=== PATIENT | female | born 2000 | race Caucasian/White ===

== ENCOUNTER 2019-11-12 | Emergency (ER) | payer BC ==
[2019-11-12 00:15] VITALS: BP 135/94; PULSE 88
[2019-11-12] MEDS ORDERED: Ondansetron 4 MG Tab.DIS PO ONE (00:33)
[2019-11-12] MEDS ORDERED: Ketorolac 60 MG/2 ML SDV IM ONE (00:33)
--- NOTE | 2019-11-12 00:37 | EDM.PDOC ---
ED HPI GENERAL MEDICAL PROBLEM - General Chief Complaint: Head Injury Stated Complaint: HIT HEAD Time Seen by Provider: 11/12/19 00:29 Source of Information: Reports: Patient, RN Notes Reviewed History Limitations: Reports: No Limitations - History of Present Illness INITIAL COMMENTS - FREE TEXT/NARRATIVE: 18-year-old female presents emergency department a complaint of headache, nausea difficulty with concentration. Reports that she had a head injury yesterday fell out of bed hit her head on the nightstand also tripped over her laundry basket hit her head on the wall to head injuries within a 24-hour period. She does have a history of concussion syndrome in the past. 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 History: Reports: Other (See Below) Other [employer]ACTICE PEDIATRICIAN History: ovarian cyst Musculoskeletal History: Reports: Fracture, Other (See Below) Other Musculoskeletal History: right knee fx Neurological History: Reports: Concussion Other Neuro History: Pt has had four other concussions previously Psychiatric History: Reports: Anxiety, Depression Dermatologic History: Reports: Other (See Below) Other Dermatologic History: back of left leg possible cyst with pending biopsy - Past Surgical History Head Surgeries/Procedures: Reports: None HEENT Surgical History: Reports: Oral Surgery Social & Family History - Tobacco Use Smoking Status *Q: Current Every Day Smoker Years of Tobacco use: 4 Packs/Tins Daily: 0.5 Second Hand Smoke Exposure: Yes - Caffeine Use Caffeine Use: Reports: Coffee - Recreational Drug Use Recreational Drug Use: No ED ROS GENERAL - Review of Systems Review Of Systems: See Below Constitutional: Reports: No Symptoms HEENT: Reports: No Symptoms Respiratory: Reports: No Symptoms Cardiovascular: Reports: No Symptoms GI/Abdominal: Reports: Nausea : Reports: No Symptoms Musculoskeletal: Reports: No Symptoms Neurological: Reports: Headache ED EXAM, HEAD INJURY - Physical Exam Exam: See Below Exam Limited By: No Limitations General Appearance: Alert, WD/WN, No Apparent Distress Head: Atraumatic, Normocephalic Eyes: Bilateral Eye: EOMI, Normal Inspection, PERRL Respiratory: No Respiratory Distress Neurologic: No Motor/Sensory Deficits, Alert, Normal Mood/Affect, Oriented x 3 Course - Vital Signs Last Recorded V/S: Last Vital Signs Temp 99.3 F 11/12/19 00:15 Pulse 88 11/12/19 00:15 Resp 15 11/12/19 00:15 BP 135/94 H 11/12/19 00:15 Pulse Ox 100 11/12/19 00:15 - Orders/Labs/Meds Meds: Medications Discontinued Medications Generic Name Dose Route Start Last Admin Trade Name Freq PRN Reason Stop Dose Admin Ketorolac Tromethamine 60 mg 11/12/19 00:33 11/12/19 00:49 Toradol IM 11/12/19 00:34 60 mg ONETIME ONE Administration Ondansetron HCl 4 mg 11/12/19 00:33 11/12/19 00:50 Zofran Odt PO 11/12/19 00:34 4 mg ONETIME ONE Administration Departure - Departure Time of Disposition: 00:57 Disposition: Home, Self-Care 01 Condition: Fair Clinical Impression: Concussion with no loss of consciousness - Discharge Information Instructions: Concussion, Adult, [id number] Referrals: PCP,None [Primary Care Provider] - Forms: ED Department Discharge Additional Instructions: Continue to use ibuprofen or Tylenol as needed for headache control, please followup with your primary care provider in 3-5 days if not better, please call return to the emergency department with worsening of symptoms. Sepsis Event Note - Evaluation Sepsis Screening Result: No Definite Risk - Focused Exam Vital Signs: Vital Signs Temp Pulse Resp BP Pulse Ox 11/12/19 00:15 99.3 F 88 15 135/94 H 100 11/12/19 00:14 99.3 F 88 15 135/94 H 100 Date Exam was Performed: 11/12/19 Time Exam was Performed: 00:56 - Assessment/Plan Plan: Assessment Acuity = acute Site and laterality = concussion syndrome Etiology = head injury Manifestations = nausea, headache Location of injury = Home Lab values = none Plan Good improvement with Toradol and Zofran, follow-up with primary care as needed This note was dictated using [employer] recognition software please call with any questions on syntax or grammar.
== END 2019-11-12 01:14 | disposition home or self-care (01) ==
LOC: JP.ED
DX: S06.0X0A Concussion without loss of consciousness, initial encounter (principal); F32.9 Major depressive disorder, single episode, unspecified; F41.9 Anxiety disorder, unspecified; F17.210 Nicotine dependence, cigarettes, uncomplicated; Z79.899 Other long term (current) drug therapy; W06.XXXA Fall from bed, initial encounter
CPT/HCPCS: 96372; 99283; A9270; J1885

== ENCOUNTER 2020-05-18 16:40 | Emergency (ER) | payer BC ==
[2020-05-18 17:04] VITALS: BP 127/75; PULSE 123
--- NOTE | 2020-05-18 17:15 | EDM.PDOC ---
ED HPI GENERAL MEDICAL PROBLEM - General Chief Complaint: Back Pain or Injury Stated Complaint: BACK PAIN Time Seen by Provider: 05/18/20 17:09 Source of Information: Reports: Patient, Family, RN Notes Reviewed History Limitations: Reports: No Limitations - History of Present Illness INITIAL COMMENTS - FREE TEXT/NARRATIVE: 19-year-old female presents emergency department a complaint of low back pain, she states she awoke this morning severe back pain she denies any trauma no particular lifting injury no difficulty with urination no difficulty with bowel movements Lower Back Pain Score (Numeric/FACES): 8 - Related Data Allergies Allergy/AdvReac Type Severity Reaction Status Date / Time No Known Allergies Allergy Verified 11/12/19 00:11 Home Meds: Home Meds NK [No Known Home Meds] 05/18/20 [History] Past Medical History HEENT History: Reports: Impaired Vision, Other (See Below) Other HEENT History: glasses [employer]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: Other (See Below) Other HOGSHEAD FILLER History: ovarian cyst Musculoskeletal History: Reports: Fracture, Other (See Below) Other Musculoskeletal History: right knee fx Neurological History: Reports: Concussion Other Neuro History: Pt has had four other concussions previously Psychiatric History: Reports: Anxiety, Depression Dermatologic History: Reports: Other (See Below) Other Dermatologic History: back of left leg possible cyst with pending biopsy - Past Surgical History Head Surgeries/Procedures: Reports: None HEENT Surgical History: Reports: Oral Surgery Social & Family History - Caffeine Use Caffeine Use: Reports: Coffee - Recreational Drug Use Recreational Drug Use: No ED ROS GENERAL - Review of Systems Review Of Systems: See Below Constitutional: Reports: No Symptoms Respiratory: Reports: No Symptoms Cardiovascular: Reports: No Symptoms GI/Abdominal: Reports: No Symptoms Musculoskeletal: Reports: Back Pain Neurological: Reports: No Symptoms ED EXAM,LOWER BACK PAIN/INJURY - Physical Exam Exam: See Below Exam Limited By: No Limitations General Appearance: Alert, Mild Distress Respiratory/Chest: No Respiratory Distress Back Exam: Normal Inspection, Decreased Range of Motion, Muscle Spasm, Paraspinal Tenderness. No: CVA Tenderness (R), CVA Tenderness (L), Vertebral Tenderness Neurological: No: Straight Leg Raise (L) Course - Vital Signs Last Recorded V/S: Last Vital Signs Temp 96.8 F L 05/18/20 17:04 Pulse 123 H 05/18/20 17:04 Resp 18 05/18/20 17:04 BP 127/75 05/18/20 17:04 Pulse Ox 99 05/18/20 17:04 - Orders/Labs/Meds Meds: Medications Discontinued Medications Generic Name Dose Route Start Last Admin Trade Name Lasha PRN Reason Stop Dose Admin Cyclobenzaprine HCl 10 mg 05/18/20 17:21 05/18/20 17:27 Flexeril PO 05/18/20 17:22 10 mg ONETIME ONE Administration Ketorolac Tromethamine 60 mg 05/18/20 17:21 05/18/20 17:27 Toradol IM 05/18/20 17:22 60 mg ONETIME ONE Administration Departure - Departure Time of Disposition: 17:57 Disposition: Home, Self-Care 01 Condition: Fair Clinical Impression: Low back pain Qualifiers: Chronicity: acute Back pain laterality: left Sciatica presence: without sciatica Qualified Code(s): M54.5 - Low back pain - Discharge Information Instructions: Acute Back Pain, Adult, Muscle Strain, [id number], Back Exercises, [id number] Referrals: Mame Mackey CNM [Primary Care Provider] - Forms: ED Department Discharge Additional Instructions: Try ibuprofen for baseline pain control use hydrocodone for breakthrough pain please followup with your primary care provider in 3-5 days if not better, please call return to the emergency department with worsening of symptoms. Sepsis Event Note (ED) - Evaluation Sepsis Screening Result: No Definite Risk - Focused Exam Vital Signs: Vital Signs Temp Pulse Resp BP Pulse Ox 05/18/20 17:04 96.8 F L 123 H 18 127/75 99 05/18/20 17:03 96.8 F L 123 H 18 127/75 99 - Assessment/Plan Plan: Assessment Acuity = acute Site and laterality = low back pain Etiology = unknown Manifestations = none Location of injury = Home Lab values = none Plan Had some improvement with Toradol and Flexeril prescription written for Flexeril 10 mg 1 tab p.o. 3 times daily as needed total #15 and hydrocodone 5/325 1 tab p.o. 3 times daily as needed total #10 This note was dictated using [employer] voice recognition software please call with any questions on syntax or grammar.
[2020-05-18] MEDS ORDERED: Ketorolac 60 MG/2 ML SDV IM ONE (17:21)
[2020-05-18] MEDS ORDERED: Cyclobenzaprine 10 MG Tab PO ONE (17:21)
== END 2020-05-18 18:06 | disposition home or self-care (01) ==
LOC: JP.ED 16:40
DX: M62.830 Muscle spasm of back (principal)
CPT/HCPCS: 96372; 99283; A9270; J1885

== ENCOUNTER 2024-05-19 13:45 | Emergency (ER) | payer OTHER ==
[2024-05-19 16:16] LABS: BASOPHILS ABSOLUTE AUTO 0.03 K/uL (0.00-0.10); BASOPHILS PERCENT AUTO 0.4 % (0.1-1.3); EOSINOPHILS ABSOLUTE AUTO 0.16 K/uL (0.00-0.40); HEMATOCRIT 43.4 % (34.3-46.0); IMMATURE GRAN ABSOLUTE AUTO 0.03 K/uL (0.00-0.23); IMMATURE GRAN PERCENT AUTO 0.4 % (0.0-0.7); LYMPHOCYTES ABSOLUTE AUTO 2.43 K/uL (0.8-3.3); LYMPHOCYTES PERCENT AUTO 30.3 % (11.4-47.7); MEAN CORPUSCULAR HEMOGLOBIN 32.2 pg (31.6-35.5); MEAN CORPUSCULAR HGB CONC 34.6 g/dL (31.6-35.5); MEAN CORPUSCULAR VOLUME 93.1 fL (81.4-99.0); MONOCYTES ABSOLUTE AUTO 0.63 K/uL (0.20-0.90); MONOCYTES PERCENT AUTO 7.8 % (3.3-12.6); NEUTROPHILS ABSOLUTE AUTO 4.75 K/uL (1.0-7.6); NEUTROPHILS PERCENT AUTO 59.1 % (40.0-78.1); PLATELET COUNT,PLT 301 K/uL (130-375); RED BLOOD CELL COUNT 4.66 M/uL (3.77-5.24)
[2024-05-19] MEDS: Ondansetron 4 MG/2 ML SDV IVPUSH ONE (16:16)
[2024-05-19] MEDS: HYDROmorphone 1 MG/ML Syringe IVPUSH ONE (16:17)
[2024-05-19] MEDS: Sodium Chloride 0.9% 10 ML Syringe FLUSH PRN (16:18)
[2024-05-19 16:30] LABS: APPEARANCE,URINE SLIGHTLY CLOUDY (CLEAR); BILIRUBIN,URINE NEGATIVE (NEGATIVE); COLOR,URINE YELLOW (YELLOW); GLUCOSE,URINE NEGATIVE (NEGATIVE); KETONES,URINE NEGATIVE (NEGATIVE); LEUKOCYTE ESTERASE,URINE NEGATIVE (NEGATIVE); NITRITE,URINE NEGATIVE (NEGATIVE); OCCULT BLOOD,URINE NEGATIVE (NEGATIVE); PH,URINE 7.5 (5.0-8.0); PROTEIN,URINE NEGATIVE (NEGATIVE); UROBILINOGEN,URINE 0.2 EU/dL (0.2-1.0)
[2024-05-19 16:36] LABS: AMORPHOUS SEDIMENT,URINE NOT SEEN; BACTERIA,URINE FEW; EPITHELIAL CELLS,URINE FEW; MUCUS,URINE NOT SEEN; RBC,URINE 0-5 (0-5); WBC,URINE 0-5 (0-5)
[2024-05-19 16:37] LABS: ALANINE AMINOTRANSFERASE,ALT 38 U/L (12-78); ALBUMIN 3.9 g/dL (3.4-5.0); ALKALINE PHOSPHATASE 66 U/L (46-116); ANION GAP 7.7 mmol/L (5.0-14.0); ASPARTATE AMNIOTRANSFERASE,AST 25 U/L (15-37); BILIRUBIN TOTAL 0.5 mg/dL (0.2-1.0); BLOOD UREA NITROGEN,BUN 8 mg/dL (7-18); C-REACTIVE PROTEIN 1.08 mg/dL (<0.50); CALCIUM 9.7 mg/dL (8.5-10.1); CARBON DIOXIDE,CO2 28 mmol/L (21-32); CHLORIDE,CL 104 mmol/L (100-108); CREATININE 0.9 mg/dL (0.6-1.0); EST CRCL DRUG DOSING (CG) 99.86 mL/min; ESTIMATED GFR 91 mL/min (>60); GLUCOSE RANDOM 90 mg/dL (74-106); POTASSIUM,K 4.4 mmol/L (3.6-5.2); PROTEIN TOTAL,TP 7.7 g/dL (6.4-8.2); SODIUM,NA 140 mmol/L (140-148)
[2024-05-19] MEDS: Sodium Chloride 0.9% 80 ML IV ONE (17:16)
[2024-05-19] MEDS: Sodium Chloride 0.9% 10 ML Syringe FLUSH ONE (17:16)
[2024-05-19] MEDS: Iopamidol 612 MG/ML 100 ML Bottle IV ONE (17:16)
[2024-05-19 18:53] VITALS: BP 115/73; PULSE 58
== END 2024-05-19 19:06 | disposition home or self-care (01) ==
LOC: JP.ED 13:45
DX: N83.202 Unspecified ovarian cyst, left side (principal); F17.210 Nicotine dependence, cigarettes, uncomplicated; Z86.16 Personal history of COVID-19
CPT/HCPCS: 36415; 74177; 80053; 81001; 81025; 83605; 83690; 84145; 85025; 86140; 87086; 96374; 96375; 99284; J1171; J2405; J3490; J7030; Q9967

== ENCOUNTER 2025-01-25 08:49 | Day surgery (SDC) | payer OTHER ==
[~2025-01-25 08:49] MED LIST: Midazolam 1 MG/ML 2 ML SDV ONE; Propofol 200 MG/20 ML SDV ONE; fentaNYL 100 MCG/2 ML SDV ONE
[2025-01-25] MEDS ORDERED: Sodium Tetradecyl Sulfate 1% 20 MG/2 ML SDV ONE (09:48)
[2025-01-25] MEDS: Lactated Ringers 1,000 ML IV SCH (10:02)
[2025-01-25] MEDS ORDERED: Propofol 200 MG/20 ML SDV ONE ×2 (10:49→11:05)
[2025-01-25] MEDS: Lidocaine 1% with EPINEPHrine 1:100,000 50 ML MDV ONE (11:05)
[2025-01-25] MEDS ORDERED: fentaNYL 100 MCG/2 ML SDV ONE (11:08)
[2025-01-25] MEDS: Lidocaine 1% w/EPINEPHrine 50 ML, Sodium Bicarbonate 5 MEQ in Sodium Chloride 0.9% 950 ML INJECT ONE (11:10)
[2025-01-25] MEDS ORDERED: Lactated Ringers 1,000 ML ONE (11:28)
[2025-01-25 12:48] VITALS: BP 124/79; PULSE 72
== END 2025-01-25 12:45 | disposition home or self-care (01) ==
LOC: JP.SDS 08:49
PROVIDERS: ATTEND Surgery
DX: I87.2 Venous insufficiency (chronic) (peripheral) (principal); E66.9 Obesity, unspecified
CPT/HCPCS: 01930; 36415; 36475; 36476; 76998; 84703; J1642; J2250; J2704; J3010; J7030; J7120; J3490